=== PATIENT | male | born 1970 | race Caucasian/White ===

== ENCOUNTER 2020-04-19 09:14 | Emergency (ER) | payer OTHER ==
[~2020-04-19] VITALS: Ht 185.4 cm; Wt 122.7 kg
[2020-04-19 09:16] VITALS: Ht 185.4 cm; Wt 122.7 kg
[2020-04-19] MEDS ORDERED: NORVASC10 MG PO (09:18)
[2020-04-19] MEDS ORDERED: BUPROPION HCL150 M1 PO (09:18)
[2020-04-19] MEDS ORDERED: COREG6.25 MG PO (09:18)
[2020-04-19] MEDS ORDERED: PRINIVIL10 MG PO (09:19)
[2020-04-19] MEDS ORDERED: OMEPRAZOLE20 M1 PO (09:19)
[2020-04-19] MEDS ORDERED: GABAPENTIN100 MG PO (09:19)
[2020-04-19] MEDS ORDERED: HYDROCODON-ACE1 EA10 PO (09:20)
[2020-04-19 09:44] LABS: BASOPHILS 0.3 % (0-2); EOSINOPHILS 2.6 % (0-7); HEMATOCRIT 41.7 % (42.0-54.0); HEMOGLOBIN 14.2 g/dL (13.5-17.5); IMMATURE GRANULOCYTES 0.3 % (0-5); LYMPHOCYTES 24.6 % (15-50); MCH 29.7 pg (26.0-34.0); MCHC 34.1 g/dL (31.0-37.0); MCV 87.2 fL (80.0-100.0); MEAN PLATELET VOLUME 8.8 fL (7.4-10.4); MONOCYTES 10.1 % (2-11); NEUTROPHILS 62.1 % (40-80); PLATELET COUNT 190 10x3/uL (130-400); RBC 4.78 10x6/uL (4.20-6.10); RDW 12.8 % (11.5-14.5); WBC 5.9 10x3/uL (4.8-10.8)
[2020-04-19 09:54] LABS: APTT 31.2 SECONDS (22.8-39.4); INR 1.1 (0.85-1.17); PROTIME 14.2 SECONDS (11.6-15.0)
[2020-04-19 10:07] LABS: CALC OSMOLALITY 274 mosm/kg (275-300); CALCIUM 8.8 mg/dL (8.5-10.1); CARBON DIOXIDE 28.9 mmol/L (21.0-32.0); CHLORIDE - SERUM 102 mmol/L (98-107); CREATININE - SERUM 0.9 mg/dL (0.6-1.3); GLUCOSE 115 mg/dL (74-106); POTASSIUM - SERUM 3.9 mmol/L (3.5-5.1); SODIUM 137 mmol/L (136-145); UREA NITROGEN 12 mg/dL (7-18); eGFR NON AFRICAN AMERICAN > 90 mL/min (90-120)
[2020-04-19 10:24] LABS: ALBUMIN 4.2 g/dL (3.4-5.0); ALKALINE PHOSPHATASE 89 U/L (30-120); ALT (SGPT) 41 U/L (10-68); BILIRUBIN - TOTAL 0.89 mg/dL (0.2-1.3); CKMB 0.4 U/L (0.0-3.6); CREATINE KINASE 66 UL (21-232); MAGNESIUM - SERUM 2.1 mg/dL (1.8-2.4); PROTEIN - SERUM 6.9 g/dL (6.4-8.2); TROPONIN-I < 0.017 ng/mL (0.000-0.060)
[2020-04-19 11:45] VITALS: BP 136/79
== END 2020-04-19 11:46 ==
LOC: D.ER 09:14
PROVIDERS: Family Medicine
DX: R07.89 Other chest pain (principal); I10 Essential (primary) hypertension; Z72.0 Tobacco use; K21.9 Gastro-esophageal reflux disease without esophagitis